=== PATIENT | female | born 1985 | race Caucasian/White ===

== ENCOUNTER → 2025-06-03 12:31 | Outpatient (CLI) | payer BC, SELFPAY ==
[2025-06-03 13:36] LABS: Cholesterol 227 mg/dL (140-199); Glucose 97 mg/dL (70-99); HDL Cholesterol 103 mg/dL (40-60); Triglycerides 82 mg/dL (35-150)
== END ==
PROVIDERS: PCP Family Medicine; Referring Provider Family Medicine; Visit Provider Family Medicine
DX: Z13.1 Encounter for screening for diabetes mellitus (principal); Z13.220 Encounter for screening for lipoid disorders
CPT/HCPCS: 36415; 80061; 82947